=== PATIENT | female | born 1970 | race Caucasian/White ===

== ENCOUNTER 2020-02-27 13:26 | Emergency (ER) | payer OTHER ==
[~2020-02-27] VITALS: Ht 157.5 cm; Wt 148.6 kg
[2020-02-27 13:30] VITALS: BP 133/67
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
[2020-02-27] MEDS ORDERED: ORPH-16 PO (14:05)
--- NOTE | 2020-02-27 18:19 | EKG ---
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
== END 2020-02-27 14:14 | disposition home or self-care (01) ==
LOC: ER 13:26
DX: S20.212A Contusion of left front wall of thorax, initial encounter (principal); V89.2XXA Person injured in unspecified motor-vehicle accident, traffic, initial encounter; Y93.89 Activity, other specified; Y92.488 Other paved roadways as the place of occurrence of the external cause; Y99.8 Other external cause status
CPT/HCPCS: 71046; 93005; 99283